=== PATIENT | female | born 1990 | race Two or more races ===

== ENCOUNTER 2016-12-03 15:58 | Emergency (ER) | payer BC ==
[~2016-12-03] VITALS: Ht 157.5 cm; Wt 52.2 kg
[2016-12-03] MEDS ORDERED: MUPI15CR TP (16:12)
[2016-12-03] MEDS ORDERED: TRAM50TA PO (16:12)
--- NOTE | 2016-12-03 16:12 | PHYS DOC ---
Adult General Chief Complaint Chief Complaint: ABSCESS HPI HPI Patient is a 25 year old 2 day history of rash to the left buttock. Patient states it is painful and looks like blisters. She reports that she did have tenderness to the area proximally 3 days prior to onset rash. No fever, sore throat, nausea, vomiting, chest pain, abdominal pain. Review of Systems Review of Systems Constitutional: Denies fever or chills [] Eyes: Denies change in visual acuity, redness, or eye pain [] HENT: Denies nasal congestion or sore throat [] Respiratory: Denies cough or shortness of breath [] Cardiovascular: No additional information not addressed in HPI [] GI: Denies abdominal pain, nausea, vomiting, bloody stools or diarrhea [] : Denies dysuria or hematuria [] Musculoskeletal: Denies back pain or joint pain [] Integument: Rash on left buttock Neurologic: Denies headache, focal weakness or sensory changes [] Endocrine: Denies polyuria or polydipsia [] Physical Exam Physical Exam Constitutional: Well developed, well nourished, no acute distress, non-toxic appearance. [] HENT: Normocephalic, atraumatic, bilateral external ears normal, oropharynx moist, no oral exudates, nose normal. [] Eyes: PERRLA, EOMI, conjunctiva normal, no discharge. [] Neck: Normal range of motion, no tenderness, supple, no stridor. [] Cardiovascular:Heart rate regular rhythm, no murmur [] Lungs & Thorax: Bilateral breath sounds clear to auscultation [] Abdomen: Bowel sounds normal, soft, no tenderness, no masses, no pulsatile masses. [] Skin: Left buttock, dermatome S3 erythematous based vesicular rash, tender to touch. Back: No tenderness, no CVA tenderness. [] Extremities: No tenderness, no cyanosis, no clubbing, ROM intact, no edema. [] Neurologic: Alert and oriented X 3, normal motor function, normal sensory function, no focal deficits noted. [] Psychologic: Affect normal, judgement normal, mood normal. [] EKG EKG [] Radiology/Procedures Radiology/Procedures [] Course & Med Decision Making Course & Med Decision Making Pertinent Labs and Imaging studies reviewed. (See chart for details) [] Dragon Disclaimer Dragon Disclaimer This electronic medical record was generated, in whole or in part, using a voice recognition dictation system. Departure Departure Impression: Primary Impression: Gunner Disposition: 01 HOME, SELF-CARE Condition: STABLE Patient Instructions: Gunner Goodson Tramadol Hcl (TRAMADOL HCL) 50 Mg Tablet 1 TAB PO PRN Q6HRS, #20 TAB Prov: TRACY STARK APRN 12/03/16 Mupirocin Calcium (BACTROBAN CREAM) 15 Gm Cream..g. 1 YOKASTA TP TID, #30 GM Prov: TRACY STARK APRN 12/03/16 TRACY STARK APRN Dec 03, 2016 16:12
[2016-12-03 16:17] VITALS: BP 112/68
[2016-12-03] MEDS ORDERED: ACYC800T PO (16:25)
== END 2016-12-03 16:20 | disposition home or self-care (01) ==
LOC: ER 15:58
DX: B02.9 Zoster without complications (principal)
CPT/HCPCS: 99283

== ENCOUNTER 2017-06-24 07:27 | Emergency (ER) | payer BC | END 2017-06-24 08:13 | disposition home or self-care (01) | LOC: ER 07:27 | DX: B02.9 Zoster without complications (principal) | CPT/HCPCS: 99283 ==

== ENCOUNTER 2017-07-03 10:54 | Emergency (ER) | payer BC ==
[2017-07-03 11:21] LABS: POC GLUCOSE 83 mg/dL (70-99)
[2017-07-03 11:32] LABS: URINE HCG POC HCG NEGATIVE (Negative)
[2017-07-03 11:39] LABS: ADD MAN DIFF? NO
[2017-07-03 11:41] LABS: BASO % 0 % (0-3); EOS # 0.1 x10^3/uL (0.0-0.7); EOS % 1 % (0-3); HEMATOCRIT 42.2 % (36.0-47.0); HEMOGLOBIN 14.3 g/dL (12.0-15.5); LYMPH # 2.8 x10^3/uL (1.0-4.8); LYMPH % 36 % (24-48); MEAN CORPUSCULAR HEMOGLOBIN 32 pg (25-35); MEAN CORPUSCULAR HGB CONC 34 g/dL (31-37); MEAN CORPUSCULAR VOLUME 94 fL (79-100); MONO # 0.7 x10^3/uL (0.0-1.1); MONO % 9 % (0-9); NEUT # 4.1 x10^3uL (1.8-7.7); NEUT % 53 % (31-73); PLATELET COUNT 364 x10^3/uL (140-400); RED BLOOD COUNT 4.51 x10^6/uL (3.50-5.40); RED CELL DISTRIBUTION WIDTH 13.8 % (11.5-14.5); WHITE BLOOD COUNT 7.8 x10^3/uL (4.0-11.0)
[2017-07-03] MEDS: IV NORMAL SALINE 1000ML BAG 1,000 ML IV ×2 (11:44)
[2017-07-03 11:51] LABS: ANION GAP 11 (6-14); BLOOD UREA NITROGEN 12 mg/dL (7-20); BUN/CREATININE RATIO 20 (6-20); CALCIUM 9.9 mg/dL (8.5-10.1); CARBON DIOXIDE 26 mmol/L (21-32); CHLORIDE 101 mmol/L (98-107); CREATININE 0.6 mg/dL (0.6-1.0); GFR 121.8; GLUCOSE 101 mg/dL (70-99); SODIUM 138 mmol/L (136-145)
[2017-07-03 11:57] LABS: ALBUMIN 4.2 g/dL (3.4-5.0); ALBUMIN/GLOBULIN RATIO 1.2 (1.0-1.7); ALK PHOS 87 U/L (46-116); ALT (SGPT) 52 U/L (14-59); AST (SGOT) 26 U/L (15-37); TOTAL BILIRUBIN 0.9 mg/dL (0.2-1.0); TOTAL PROTEIN 7.8 g/dL (6.4-8.2)
[2017-07-03 12:03] LABS: D-DIMER 0.42 ug/mlFEU (0.00-0.50)
== END 2017-07-03 12:50 | disposition home or self-care (01) ==
LOC: ER 10:54
DX: E86.0 Dehydration (principal); R00.0 Tachycardia, unspecified; R19.7 Diarrhea, unspecified
CPT/HCPCS: 36415; 71046; 80053; 81025; 82962; 85025; 85379; 93005; 96360; 99285-25; J7030

== ENCOUNTER 2018-07-29 18:27 | Emergency (ER) | payer BC, OTHER ==
[~2018-07-29] VITALS: Ht 160 cm; Wt 55.3 kg
[~2018-07-29 18:27] MED LIST: ACYC800T PO; HYDR-3164 PO; MUPI15CR TP; PRED50TA PO; TRAM50TA PO
[2018-07-29 18:45] VITALS: BP 103/77
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
== END 2018-07-29 20:35 | disposition home or self-care (01) ==
LOC: ER 18:27
DX: S39.012A Strain of muscle, fascia and tendon of lower back, initial encounter (principal); Z51.81 Encounter for therapeutic drug level monitoring; M25.511 Pain in right shoulder; M25.512 Pain in left shoulder; X50.3XXA Overexertion from repetitive movements, initial encounter; Y93.89 Activity, other specified; Y92.89 Other specified places as the place of occurrence of the external cause; Y99.8 Other external cause status
CPT/HCPCS: 99281

== ENCOUNTER 2018-09-27 15:47 | Emergency (ER) | payer OTHER | END 2018-09-27 16:08 | disposition left against medical advice (07) | LOC: ER 15:47 | DX: Z02.83 Encounter for blood-alcohol and blood-drug test (principal); Z53.21 Procedure and treatment not carried out due to patient leaving prior to being seen by health care provider ==

== ENCOUNTER 2021-06-15 07:29 | Emergency (ER) | payer OTHER ==
[~2021-06-15] VITALS: Ht 162.6 cm; Wt 58.1 kg
[~2021-06-15 07:29] MED LIST changes: -ACYC800T PO; +ACYC800T88 PO; +CYCL10TA19 PO; +DEXA4TAB PO; +METH4TAB2 PO; +NAPR500T8 PO
[2021-06-15 09:34] VITALS: BP 104/64
== END 2021-06-15 11:30 | disposition left against medical advice (07) ==
LOC: ER 07:29
DX: H54.7 Unspecified visual loss (principal); Z53.21 Procedure and treatment not carried out due to patient leaving prior to being seen by health care provider